=== PATIENT | female | born 1935 | race Caucasian/White ===

== ENCOUNTER 2017-10-22 17:07 | Inpatient (IN) | payer MEDICARE ==
[~2017-10-22 17:07] MED LIST: ISOVUE-370 76%-LOCM 1 ML ONE
[2017-10-22 18:20] LABS: Hemoglobin 8.6 g/dL (12.0-16.0); Mean Corpuscular HGB CONC 29.7 g/dL (32.0-36.0); Mean Corpuscular Hemoglobin 21.1 pg (27.0-31.0); Mean Corpuscular Volume 71.1 fl (81.0-99.0); Mean Platelet Volume 9.1 fL (7.4-10.4); Platelet Count 291 thou/uL (130-400); RBC Distribution Width 18.9 % (11.5-14.5); Red Blood Cell (RBC) Count 4.08 mill/uL (4.20-5.40); White Blood Cell (WBC) Count 10.2 thou/uL (4.8-10.8)
[2017-10-22 18:21] LABS: #Lymphocytes 1.4 thou/uL (1.20-3.40); #Monocytes 0.6 thou/uL (0.11-0.59); #Neutrophils 8.2 thou/uL (1.40-6.50); %Eosinophils 0.2 % (0.0-10.0); %Lymphocytes 13.6 % (21.0-51.0); %Neutrophils 80.1 % (42.0-75.0)
[2017-10-22 18:25] LABS: ALT (SGPT) Less than 7 U/L (8-55); AST (SGOT) 9 U/L (5-34); Albumin 3.2 g/dL (3.4-4.8); Alkaline Phosphatase 110 U/L (40-150); Anion Gap 13 mmol/L (10-20); BUN (Urea Nitrogen) 11 mg/dL (9.8-20.1); Bilirubin, Total 0.4 mg/dL (0.2-1.2); Calc. Creatinine Clearance 0 mL/min (70-130); Calcium 8.1 mg/dL (7.8-10.44); Carbon Dioxide 23 mmol/L (23-31); Chloride 101 mmol/L (98-107); Estimated GFR-MDRD 72; Globulin 3.3 g/dL (2.4-3.5); Glucose 104 mg/dL (83-110); Protein, Total 6.5 g/dL (6.0-8.3); Sodium 134 mmol/L (136-145)
[2017-10-22 18:31] LABS: CK (CPK) 52 U/L (29-168); Lipase 18 U/L (8-78); Potassium 2.8 mmol/L (3.5-5.1)
[2017-10-22 18:34] LABS: Anisocytosis SLIGHT = 6-15 cells (100X) (0-5/hpf); Hypochromia SLIGHT = 6-15 cells (100X) (0-5/hpf); MDiff Complete? YES; Microcytosis SLIGHT = 6-15 cells (100X) (0-5/hpf); PLT Morphology Comment Appears Adequate; Polychromasia SLIGHT = 2-3 cells (100X) (0-2/hpf); Target Cells SLIGHT = 2-5 cells (100X) (0-1/hpf)
[2017-10-22 18:37] LABS: CKMB 0.9 ng/mL (0-6.6); Troponin I 0.031 ng/mL (< 0.028)
--- NOTE | 2017-10-22 19:11 | RAD ---
PORTABLE AP CHEST X-RAY: 10/22/17 HISTORY: Altered mental status. COMPARISON: 03/06/15. FINDINGS: There are partially calcified bilateral breast prostheses noted. Cardiac silhouette is magnified by p rojection. Pulmonary vasculature is within normal limits. The lungs appear clear. There is a right si ded ventriculoperitoneal shunt catheter seen. Vascular calcifications seen in the thoracic aorta. The re is osteopenia. There has been no interval change from the prior exam. IMPRESSION: No acute cardiopulmonary process. POS: BARON
--- NOTE | 2017-10-22 19:19 | CT ---
NONCONTRAST CT HEAD 10/22/17 HISTORY: Altered mental status. COMPARISON: 03/08/15 FINDINGS: Ventriculoperitoneal shunt catheter is again noted in place entering via a right parietal approach wh ich extends anteriorly and superiorly with the tip seen just medial to the anterior horn right latera l ventricle. The ventricular system remains mildly dilated. There are stable postsurgical changes posterior fossa with metallic clip in the posterior fossa. Cran iotomy defect in occipital lobe is present. Stable chronic small vessel ischemic changes and cerebral volume loss with areas of encephalomalacia in the right frontal lobe. There is a stable remote infarction in the left cerebellar hemisphere. The re is no evidence of an acute cortical infarction, hemorrhage, mass effect, or midline shift. IMPRESSION: 1. Stable CT scan of the head with chronic small vessel ischemic changes, cerebral volume loss, as well as postoperative changes. 2. Stable prominence of the ventricular system with ventriculoperitoneal shunt catheter stable i n position. 3. No acute intracranial abnormality is demonstrated. POS: DEJAN
[2017-10-22 20:03] LABS: Bilirubin Negative (Negative); Blood, Urine Negative (Negative); Clarity CLOUDY (Clear); Glucose, Urine (Dipstick) Negative (Negative); Leukocyte Moderate (Negative); Nitrite Positive (Negative); Protein, Urine (Dipstick) 30 mg/dL (Neg-Trace); Specific Gravity, Urine 1.018 (1.002-1.036)
[2017-10-22 20:04] LABS: Bacteria/HPF 4+ HPF (None Seen); RBC/HPF 0-3 HPF (0-3); Yeast-AUWi Flag 14.7 (0-25.0)
[2017-10-22 20:05] LABS: Hyaline Casts/LPF >50 HYALINE CAST LPF (0-3 Hyaline); Pathc Cast-AUWi Flag 6.06 (0-2.49)
[2017-10-22 20:15] LABS: Other Casts/LPF None Seen LPF (0-3 Hyaline)
--- NOTE | 2017-10-22 21:06 | CT ---
CT ABDOMEN AND PELVIS WITH IV CONTRAST: 10/22/17 HISTORY: GI bleed and altered mental status. COMPARISON: Noncontrast CT abdomen and pelvis on 06/28/13. FINDINGS: There is partial visualization of calcified bilateral breast prostheses. Vascular calcifications are again seen in the abdominal aorta and involving the iliac arteries. There is partial visualization of a ventriculoperitoneal shunt catheter entering the right upper quad rant, and the tip is also within the right upper quadrant. Bibasilar atelectasis is present. Calcified granulomata are again seen in the liver and spleen. The pancreas, bilateral adrenal glands, and left kidney as well as urinary bladder demonstrate a norm al CT appearance. There is a subcentimeter too small to characterize hypodense lesion superior pole r ight kidney also seen on the prior study and likely represents a renal cyst. There is a tiny subcenti meter hypodense lesion seen at the lateral aspect body of the spleen. This could potentially be artif actual and is very small in size. No free fluid, fluid collection, or lymphadenopathy seen in the abdomen or pelvis. IMPRESSION: 1. No acute findings in the abdomen or pelvis. 2. Ventriculoperitoneal shunt catheter noted in place terminating in the right upper quadrant. 3. Right renal cyst. 4. Hysterectomy. 5. Colonic diverticulosis predominantly involving the distal descending colon and sigmoid colon. POS: DEJAN
[2017-10-22 22:36] LABS: PTT 29.7 SEC (22.9-36.1); Prothrombin Time 13.8 SEC (12.0-14.7)
[2017-10-22 22:51] LABS: CKMB 1.2 ng/mL (0-6.6); Troponin I 0.025 ng/mL (< 0.028)
[2017-10-22] MEDS ORDERED: Potassium Chloride 20 MEQ TAB ONE (23:39)
[2017-10-23] MEDS ORDERED: Acetaminophen 325 MG TAB PO PRN (00:31)
[2017-10-23] MEDS ORDERED: Ondansetron HCl/PF 4 MG/2 ML Vial IVP PRN (00:31)
[2017-10-23] MEDS ORDERED: Ondansetron ODT 4 MG TAB SL PRN (00:31)
[2017-10-23 00:41] VITALS: BMI 25.6
[2017-10-23 10:31] LABS: Iron 19 ug/dL (50-170); Iron Binding Capacity, Total 355 mcg/dL (265-497)
[2017-10-23] MEDS: Potassium Chloride 20 MEQ TAB PO SCH ×2 (16:28→20:38)
--- NOTE | 2017-10-23 20:12 | HP ---
DATE OF ADMISSION: 10/22/2017 CHIEF COMPLAINT: Syncopal episode. HISTORY OF PRESENT ILLNESS: Ms. Chinchilla is an 82-year-old female with a past medical history of hyperlipidemia, depression, CVA, and a syncopal episode while in the bathroom, who lost consciousness for few seconds. She felt dizzy and passed out. She did not have any chest pain or shortness of breath. No abdominal pain, and vomited once. The patient usually gets confused when she gets tired. EMS was called. EMS found the patient with hypotension of 79/59. In the ER, the patient was evaluated and found to have urinary tract infection as well as hypokalemia. The patient received Rocephin and K-Dur and IV fluid bolus 1 liter. Patient also has evidence of GI bleeding. CT scan of the abdomen revealed colon diverticulosis. The patient is admitted for further evaluation and management. PAST MEDICAL HISTORY: 1. Hyperlipidemia. 2. Depression. 3. History of brain aneurysm. 4. Anxiety disorder. PAST SURGICAL HISTORY: 1. Status post DYSLEXIA TEACHER shunt placement for brain aneurysm after the repair. 2. Status post appendectomy. CURRENT MEDICATIONS: Zoloft 12.5 mg daily, Lipitor 10 mg daily, aspirin 325 mg daily. ALLERGIES: No known drug allergies. FAMILY HISTORY: Nothing of interest. SOCIAL HISTORY: Patient lives with family. No history of smoking. Denies alcohol. REVIEW OF SYSTEMS: Cardiovascular: No chest pain. No shortness of breath. Respiratory: No fever or cough. Gastrointestinal: Has vomiting. No abdominal pain. Genitourinary: No dysuria. Central nervous system: Has dizziness, no headache. PHYSICAL EXAMINATION: GENERAL: The patient is alert, awake, oriented x3. VITAL SIGNS: Temperature 98, pulse 74, respiratory rate 20, blood pressure 170/ 80. HEENT: Head is normocephalic, atraumatic. Pupils equal and reactive to light. Nasopharynx pale and dry. Hard and soft palate, no lesions seen. SKIN: Skin turgor decreased. NECK: Supple. No JVD. LUNGS: Breath sounds diminished. Percussion note dull, No rales, no rhonchi. HEART: S1 and S2, regular. ABDOMEN: Soft, no distention, no tenderness. Normal bowel sounds present. RECTAL EXAM: Done in the ER with heme-positive stool. CENTRAL NERVOUS SYSTEM: The patient is alert, awake, not well oriented. Motor system power 4/5 in all extremities. Deep tendon reflexes 2+ bilaterally. Plantar downgoing. Sensory intact. LABORATORY AND X-RAY FINDINGS: CBC shows WBC 10, hemoglobin 8.6, hematocrit 20 , platelets 291. Metabolic panel shows sodium 134, potassium 2.8, chloride 101 , CO2 of 23, urea nitrogen 11, creatinine 0.7, glucose 104. CK-MB 0.9, troponin I 0.031. Serum iron was 19, TIBC 355. Urinalysis revealed wbc greater than 50, bacteria 4+. More than 50 hyaline casts. Nitrite positive. Chest x-ray, no acute cardiopulmonary process seen. EKG shows normal sinus rhythm, no acute ST-T-wave changes seen. CT scan of the abdomen and pelvis showed no acute findings showing ventriculoperitoneal shunt and colonic diverticulosis involving the distal descending colon and sigmoid colon. ASSESSMENT: 1. Syncopal episode. 2. Urinary tract infection, rule out sepsis. 3. Severe hypokalemia. 4. Acute encephalopathy, metabolic, possible gastrointestinal bleeding. 5. Anemia secondary to bleeding. 6. Hyperkalemia. 7. History of brain aneurysm, status post repair with DYSLEXIA TEACHER shunt. PLAN: 1. Vital signs q.4 hours. 2. Activity: As tolerated. 3. rocephen 2 gms IV pigggybag 4. Hep-lock. 5. allergien NKDA 6. Diet: Regular. 7. Continue home medications. CBC and base met in the morning. 8. KCl replacement. 9. GI consult. FAIZA
[2017-10-23] MEDS: Atorvastatin Calcium 10 MG TAB PO SCH (20:38)
[2017-10-23] MEDS: cefTRIAXone\\ROCEPHIN 2 GM in Sodium Chloride 0.9% 100 ML IVPB SCH (20:38)
--- NOTE | 2017-10-23 22:35 | CON ---
DATE OF CONSULTATION: 10/23/2017 REASON FOR CONSULTATION: Melena, anemia. CONSULTING PHYSICIAN: Dr. Archie Garcia. 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 During her loss of consciousness, she vomited as well as exhibited loss of bladder and bowel control. EMS was subsequently called and she was brought to the ER with si gnificant hypotension on admission. Labs on admission showed presence of a urinary tract infection. She was placed on antibiotics as well as resuscitated with IV fluids with good response to treatment . However, she was also noted to have significantly decreased H&H on admission concerning for possib le GI bleeding. Upon further evaluation and further questioning both the patient and her son, she st ates that she had a large black solid bowel movement approximately 1 week ago and has had this occur intermittently for the last 2-3 weeks prior; however, she denies any other evidence of overt GI bleed ing including hematemesis or hematochezia. REVIEW OF SYSTEMS: A 10-category review of systems was obtained with all responses negative except t hose listed in the HPI. PAST MEDICAL HISTORY: As per HPI. PAST SURGICAL HISTORY: Brain aneurysm repair with ventriculoperitoneal shunt placement, a left carot id endarterectomy, appendectomy. FAMILY HISTORY: Uterine or cervical cancer (mother); colon cancer? (father). SOCIAL HISTORY: Smokes approximately 1/4 pack per day. Denies any alcohol or illicit drug use. OUTPATIENT MEDICATIONS: Reviewed. ALLERGIES: No known drug allergies. PHYSICAL EXAMINATION: VITAL SIGNS: Temperature of 99, pulse 80, blood pressure 171/77, respiratory rate 18, satting 92% on room air. GENERAL: The patient is lying in bed in no acute distress. HEENT: Neck is supple, no JVD noted. CARDIOVASCULAR: Regular rate and rhythm with no discernible murmurs, gallops or rubs. RESPIRATORY: Clear to auscultation bilaterally with no discernible wheezes or rales. ABDOMEN: Normoactive bowel sounds, soft, nontender, nondistended. EXTREMITIES: No cyanosis, clubbing or edema. No movement noted from the left upper or lower extremi ty consistent with prior hemiparesis. LABORATORY DATA: CBC with a white blood cell count of 10.2, hemoglobin 8.6, hematocrit 29, platelets 291. Chemistry with a sodium of 134, potassium 2.8, chloride 101, CO2 is 23, BUN 11, creatinine 0.7 7, glucose 104, AST 9, ALT 7, alkaline phosphatase 110, total bilirubin 0.4, albumin 3.2, MCV 71, RDW 18.9, INR 1.0. IMAGING DATA: CT of the abdomen and pelvis obtained on 10/22/2017 showed placement of the ventriculo peritoneal shunt in the right upper quadrant, but no other GI abnormalities. ASSESSMENT AND PLAN: The patient is an 82-year-old female with past medical history of brain aneurys m status post ventriculoperitoneal shunt, cerebrovascular accident, depression, and tobacco abuse pre senting with anemia and iron indices concerning for iron deficiency anemia. 1. Iron deficiency anemia. The patient was initially presenting to the hospital with loss of consciousness at home and what appe ars to be seizure-like activity with loss of both bladder and bowel control. However, upon admission to the ER, she was noted to have a significantly decreased H&H with her CBC indices concerning for i aguila deficiency anemia. Upon further questioning of the patient, she has been having intermittent ilia id black stools over the last 2-3 weeks, also concerning for possible upper gastrointestinal bleeding source and while she does have a possible history of colon cancer in her father, she has never had a colonoscopy before, also raising concern as this could be a possible source of iron deficiency anemi a, currently differential is broad with differential including AVM/Dieulafoy lesions, gastritis, esop hagitis, colitis, peptic ulcer disease, stercoral ulcerations, hemorrhoids, and/or GI malignancies. RECOMMENDATIONS: 1. We would continue to trend H&H and transfuse as necessary to maintain an H&H of 7/. 2. Avoid any NSAIDs during this hospitalization. 3. Please make patient n.p.o. at midnight for both EGD and colonoscopy tomorrow morning for evaluati on of possible GI bleeding source. We would give the patient GoLYTELY for colon preparation for the colonoscopy tomorrow. 4. Continue to monitor clinically for any signs of active gastrointestinal bleeding. We will continue to follow. Please call with any questions.
--- NOTE | 2017-10-23 22:49 | ULT ---
BILATERAL CAROTID DUPLEX ULTRASOUND WITH SPECTRAL ANALYSIS AND COLOR FLOW EVALUATION: Date: 10/23/17 HISTORY: Sepsis, altered mental status. FINDINGS: There is a heterogeneous nodule measuring approximately 2.0 cm seen in the right lobe of the thyroid gland. This heterogeneous nodule was seen on prior CTA of the neck on 03/07/15. Minimal atherosclerotic plaque is seen within the right common carotid artery with prominent atherosc lerotic plaque seen in the left internal carotid artery. There is moderate (50-69%) stenosis in the left internal carotid artery based on a peak systolic [place] of 136.7 cm/second. The left ICA/CCA ratio is 1.47. There is less than 50% maximal stenosis in the right internal carotid artery with peak systolic veloc ity of 94.7 cm/second, and an ICA/CCA ratio of 1.05. Antegrade flow is demonstrated in the vertebral arteries bilaterally. IMPRESSION: 1. Dominant nodule right lobe of thyroid gland. However, this nodule was seen on prior CT scan exam on 03/07/15. 2. Moderate (50-69%) stenosis involving the left internal carotid artery. 3. No hemodynamically significant stenosis in the right internal carotid artery. The right internal carotid artery is tortuous. POS: DEJAN
[2017-10-24] MEDS: Potassium Chloride 20 MEQ TAB PO SCH (00:08)
[2017-10-24 05:19] LABS: #Eosinphils 0.1 thou/uL (0.0-0.7); #Lymphocytes 2.3 thou/uL (1.20-3.40); #Monocytes 0.5 thou/uL (0.11-0.59); #Neutrophils 4.1 thou/uL (1.40-6.50); %Basophils 0.2 % (0.0-1.0); %Eosinophils 1.5 % (0.0-10.0); %Lymphocytes 32.5 % (21.0-51.0); %Monocytes 7.6 % (0.0-10.0); %Neutrophils 58.2 % (42.0-75.0); Mean Corpuscular HGB CONC 30.1 g/dL (32.0-36.0); Mean Corpuscular Hemoglobin 21.3 pg (27.0-31.0); Mean Corpuscular Volume 70.8 fl (81.0-99.0); Mean Platelet Volume 9.7 fL (7.4-10.4); Platelet Count 269 thou/uL (130-400); RBC Distribution Width 19.1 % (11.5-14.5); Red Blood Cell (RBC) Count 3.75 mill/uL (4.20-5.40)
[2017-10-24 05:29] LABS: Anion Gap 8 mmol/L (10-20); BUN (Urea Nitrogen) 7 mg/dL (9.8-20.1); Calc. Creatinine Clearance 73 mL/min (70-130); Calcium 8.3 mg/dL (7.8-10.44); Carbon Dioxide 26 mmol/L (23-31); Chloride 103 mmol/L (98-107); Estimated GFR-MDRD 89; Glucose 84 mg/dL (83-110); Potassium 3.7 mmol/L (3.5-5.1); Sodium 133 mmol/L (136-145)
[2017-10-24] MEDS ORDERED: GoLYTELY 4,000 ml Bottle PO SCH (08:15)
[2017-10-24] MEDS ORDERED: Prevnar 13-Val Conj/PF 0.5 ML SYRINGE IM ONE (09:00)
[2017-10-24] MEDS ORDERED: FLU VACC TS2017-18 (>65YR) 0.5 ML SYRINGE IM ONE (09:00)
[2017-10-24] MEDS: Aspirin 325 mg Enteric Coated Tablet PO SCH (10:02)
--- NOTE | 2017-10-24 15:51 | PRG ---
DATE OF SERVICE: 10/24/2017 REASON FOR CONSULTATION: Melena, anemia. SUBJECTIVE: The patient is doing well this morning with no acute events or problems overnight. Curr ently, she denies any nausea, vomiting, fevers, chills, shortness of breath, abdominal pain, or GI bl eeding. She was due to have both EGD and colonoscopy today, but unfortunately the GoLYTELY prep was not ordered last night with inability to perform the procedures without this mechanism in place. OBJECTIVE: VITAL SIGNS: Temperature 97.9, pulse 76, blood pressure 132/67, respiratory rate 18, satting 92% on room air. GENERAL: The patient is lying in bed in no acute distress. CARDIOVASCULAR: Regular rate and rhythm with no discernible murmurs, gallops or rubs. RESPIRATORY: Clear to auscultation bilaterally. ABDOMEN: Normoactive bowel sounds, soft, nontender, nondistended. EXTREMITIES: No cyanosis, clubbing or edema. No movement noted from the left upper or left lower ex tremity consistent with prior hemiparesis. LABORATORY DATA: CBC with a white blood cell count of 7, hemoglobin 8, hematocrit 26.6, platelets 26 9. Chemistry with a sodium 133, potassium 3.7, chloride 103, CO2 is 26, BUN 7, creatinine 0.64, gluc ose 84. IMAGING DATA: No current GI imaging available for review. ASSESSMENT: The patient is an 82-year-old female with past medical history of brain aneurysm status post ventriculoperitoneal shunt, cerebrovascular accident, depression, and tobacco abuse presenting w ith anemia and iron indices concerning for iron deficiency anemia. 1. Iron deficiency anemia. The patient initially presented to the hospital with loss of consciousne ss at home and what appeared to be seizure-like activity with loss of both bladder and bowel control. However, routine labs noted on admission showed a significantly decreased H&H from her baseline wit h iron indices consistent with iron deficiency anemia. She does have a recent history of intermitten t solid black stools over the last 2-3 weeks concerning for melena, but not necessarily consistent wi th this diagnosis. At this point in time, the origin of her anemia is unknown and so further evaluat ion with both upper and lower endoscopy is indicated. RECOMMENDATIONS: 1. Continue to trend H&H and transfuse as necessary to maintain an H&H of 7/. 2. Avoid any NSAIDs during this hospitalization. 3. The patient will be placed on clear liquid diet today with n.p.o. status at midnight in preparati on for EGD and colonoscopy tomorrow 10/25/2017. The GoLYTELY prep has already been ordered in antici pation for these procedures. 4. Continue to monitor for signs of active gastrointestinal bleeding. We will continue to follow. Please call with any questions.
[2017-10-24] MEDS: Atorvastatin Calcium 10 MG TAB PO SCH (20:33)
[2017-10-24] MEDS: cefTRIAXone\\ROCEPHIN 2 GM in Sodium Chloride 0.9% 100 ML IVPB SCH (20:33)
[2017-10-25] MEDS: Aspirin 325 mg Enteric Coated Tablet PO SCH (08:21)
--- NOTE | 2017-10-25 10:46 | RAD ---
ONE VIEW ABDOMEN: History: NG tube placement. Comparison: None. FINDINGS: There is a EDITORIAL PROJECT MANAGER shunt catheter projecting over the right hemithorax and right upper quadrant. Nasogastr ic tube extends beyond the diaphragm, distal tip in the left upper quadrant. IMPRESSION: Nasogastric tube as above. POS: DEJAN
[2017-10-25] MEDS ORDERED: PROPOFOL 200 MG/20 ML VIAL ONE (14:55)
[2017-10-25] MEDS ORDERED: Lidocaine 1% PF 5 ML VIAL ONE (14:55)
[2017-10-25] MEDS ORDERED: PHENYLEPHRINE-NS 100 MCG/ML 10 ML SYRINGE ONE (14:55)
[2017-10-25] MEDS ORDERED: Promethazine HCl 25 MG/ML VIAL SLOW IVP PRN (19:51)
[2017-10-25] MEDS ORDERED: Ondansetron HCl/PF 4 MG/2 ML Vial IVP PRN (19:51)
[2017-10-25] MEDS ORDERED: Promethazine HCl 25 MG/ML VIAL IM PRN (19:51)
[2017-10-25] MEDS: cefTRIAXone\\ROCEPHIN 2 GM in Sodium Chloride 0.9% 100 ML IVPB SCH (21:28)
[2017-10-25] MEDS: Atorvastatin Calcium 10 MG TAB PO SCH (21:28)
--- NOTE | 2017-10-25 23:42 | OP ---
DATE OF PROCEDURE: 10/25/2017 PROCEDURE: Esophagogastroduodenoscopy and colonoscopy with snare polypectomy. PREOPERATIVE DIAGNOSIS: Iron deficiency anemia. OPERATIVE NOTE: Informed consent was obtained. The patient was sedated with total intravenous anest hesia. The bite block was placed and the endoscope was advanced easily to the second portion of the d uodenum and retroflexion was performed in the stomach. She had grade B erosive esophagitis more in t he mid esophagus. The GE junction revealed a 2 cm hiatal hernia. The stomach was unremarkable, incl uding retroflexed views. The pylorus and first and second portions of the duodenum were unremarkable except for erythematous duodenitis in the first portion of the duodenum. The patient was turned steven und. Rectal exam was performed and was normal. The colonoscope was advanced to the cecum where the ileocecal valve and appendiceal orifice were clearly identified. The preparation quality was good. A 1 cm sessile polyp was removed from the cecum by snare cautery polypectomy. This had a rather deep polypectomy ulcer and a Hemoclip was placed over the site. A 6 mm polyp was removed from the ascend ing colon. A 2.2 cm sessile polyp was removed from the ascending colon. This was injected submucosa lly with saline to lift it off the wall. It was then removed in 4 pieces with snare cautery polypect earle. The edges of the polyp were treated with argon plasma coagulation. A 1.2 cm polyp was removed from the hepatic flexure in 2 pieces by snare cautery polypectomy. A 6 mm polyp was removed from the hepatic flexure by snare cautery polypectomy as well. Two polyps measuring 6 mm were removed from t he transverse colon by snare cautery polypectomy. A 1 cm possible AVM was noted in the transverse co ирина; however, this did not have bright red appearance and did not ooze or bleed with manipulation. T his was left alone. A 1.8 cm polyp was removed from the sigmoid colon at 30 cm by snare cautery poly pectomy. This was removed in two pieces. A 1.2 cm polyp was removed from the sigmoid colon at 20 cm by snare cautery polypectomy. Three 5 mm polyps removed from the rectum. Retroflexed views in the rectum were unremarkable. There was moderate diverticulosis throughout the colon. IMPRESSION: 1. Grade B erosive esophagitis. 2. A 2 cm hiatal hernia. 3. A 1 cm cecum polyp. 4. Large 2.2 cm sessile polyp in the ascending colon. This was removed piecemeal and treated with A PC. A tattoo was placed next to this polyp. A 6 mm polyp was removed from the ascending colon as we ll. 5. A 1.2 cm hepatic flexure polyp and a 6 mm polyp were removed from the hepatic flexure. 6. Two 6 mm transverse polyps were removed. 7. Possible arteriovenous malformation was noted in the transverse colon; however, this did not appe ar to be a significant bleeding source. 8. A 1.8 cm sigmoid polyp removed at 30 cm. 9. A 1.2 cm pedunculated polyp was removed from the sigmoid colon at 20 cm. 10. Three 5 mm polyps were removed from the rectum. 11. Moderate diverticulosis throughout the colon. RECOMMENDATIONS: 1. Await histopathology. 2. Proton pump inhibitor daily. 3. Consider followup colonoscopy in 6 months. This will have to be taken in consideration given the patient's age and dementia.
[2017-10-26] MEDS: Aspirin 325 mg Enteric Coated Tablet PO SCH (09:10)
--- NOTE | 2017-10-26 17:47 | PRG ---
DATE OF SERVICE: 10/26/2017 REASON FOR CONSULTATION: Melena and anemia. SUBJECTIVE: The patient was doing well today with no acute events or problems overnight. Currently, she is alert and oriented x2, but this is unchanged in terms of her baseline. She did have both EGD and colonoscopy performed yesterday with the findings listed below. Currently, she denies any nause a, vomiting, fevers, chills, shortness of breath, abdominal pain or GI bleeding. OBJECTIVE: VITAL SIGNS: Temperature 97.8, pulse 72, blood pressure 139/64, respiratory rate 16 and satting 94% on room air. GENERAL: The patient lying in bed in no acute distress, alert and oriented x2. CARDIOVASCULAR: Regular rate and rhythm. No discernible murmurs, gallops or rubs. RESPIRATORY: Clear to auscultation bilaterally. ABDOMEN: Normoactive bowel sounds, soft, nontender, nondistended. EXTREMITIES: No cyanosis, clubbing or edema. LABORATORY DATA: No current labs are available for review. IMAGING DATA: EGD performed on 10/25/2017 was unremarkable except for a 2 cm hiatal hernia and LA gr aleena B erosive esophagitis more in the mid esophagus; however, the colonoscopy showed multiple colonic polyps, the largest of which measuring 2.2 cm in the ascending colon that was removed in a piecemeal fashion. In addition to that, a 1 cm cecal polyp, 1.2 cm hepatic flexure polyp, 6 mm hepatic flexur e polyp, two 6 mm transverse polyps, 1.8 sigmoid colon polyp and a 1.2 pedunculated polyp was removed from the sigmoid colon. ASSESSMENT: The patient is an 82-year-old female with past medical history of brain aneurysm status post ventriculoperitoneal shunt, CVA, depression, and tobacco abuse presenting with anemia concerning for iron deficiency anemia. Iron deficiency anemia. The patient initially presented to the hospital with loss of consciousness a t home and what appeared to be seizure-like activity with loss of both bladder and bowel control. Ho wever, labs noted on admission showed a significantly decreased hemoglobin and hematocrit from baseli ne with iron indices are consistent with iron deficiency anemia. Esophagogastroduodenoscopy and colo noscopy performed on 10/25/2017 did not show any overt pathology within the upper GI tract that would contribute to her anemia. However, she had multiple large colonic polyps that were removed, which c ould potentially generate an iron deficiency anemia. RECOMMENDATIONS: 1. Would continue to trend hemoglobin and hematocrit and transfuse as necessary to maintain hemoglob in and hematocrit of 7/21. 2. Continue to monitor for clinical signs of overt gastrointestinal bleeding. 3. We will follow up on histopathology results with possible colonoscopy in 6 months given the piece meal removal of the large ascending colon polyp; however, the patient's age and advancing dementia sh ould be considered in regards to colon polyp surveillance. At this time, we will sign off. Please c all with any additional questions.
[2017-10-26] MEDS: Atorvastatin Calcium 10 MG TAB PO SCH (21:30)
[2017-10-26] MEDS: cefTRIAXone\\ROCEPHIN 2 GM in Sodium Chloride 0.9% 100 ML IVPB SCH (21:31)
[2017-10-27 04:47] LABS: #Eosinphils 0.2 thou/uL (0.0-0.7); #Lymphocytes 2.1 thou/uL (1.20-3.40); #Monocytes 0.5 thou/uL (0.11-0.59); #Neutrophils 4.9 thou/uL (1.40-6.50); %Basophils 0.5 % (0.0-1.0); %Eosinophils 2.2 % (0.0-10.0); %Lymphocytes 27.6 % (21.0-51.0); %Monocytes 6.1 % (0.0-10.0); %Neutrophils 63.6 % (42.0-75.0); Hemoglobin 7.5 g/dL (12.0-16.0); Mean Corpuscular HGB CONC 31.1 g/dL (32.0-36.0); Mean Corpuscular Volume 70.9 fl (81.0-99.0); Mean Platelet Volume 10.4 fL (7.4-10.4); Platelet Count 259 thou/uL (130-400); Red Blood Cell (RBC) Count 3.43 mill/uL (4.20-5.40); White Blood Cell (WBC) Count 7.7 thou/uL (4.8-10.8)
[2017-10-27 05:06] LABS: Anion Gap 10 mmol/L (10-20); BUN (Urea Nitrogen) 7 mg/dL (9.8-20.1); Calc. Creatinine Clearance 72 mL/min (70-130); Calcium 8.1 mg/dL (7.8-10.44); Carbon Dioxide 23 mmol/L (23-31); Chloride 102 mmol/L (98-107); Estimated GFR-MDRD 89; Glucose 86 mg/dL (83-110); Potassium 3.4 mmol/L (3.5-5.1); Sodium 132 mmol/L (136-145)
[2017-10-27] MEDS: Aspirin 325 mg Enteric Coated Tablet PO SCH (09:14)
--- NOTE | 2017-10-27 13:46 | CON ---
DATE OF CONSULTATION: 10/27/2017 HISTORY OF PRESENT ILLNESS: Ms. Chinchilla is an 82-year-old woman who is status post right carotid enda rterectomy in 2014. She has failed to followup. At that time, her left carotid artery had a moderat e degree of stenosis. She was admitted to the hospital with syncope and GI bleed. She has had a car otid ultrasound performed while here which shows a peak systolic velocity in the left internal caroti d artery of 136 with a ratio of 1.47. On the right there is no evidence of recurrent stenosis. I gonsales ve been asked to see her for further recommendations. PAST MEDICAL HISTORY: 1. Bilateral carotid stenosis status post right carotid endarterectomy in 2014. 2. Hyperlipidemia. 3. Depression. 4. History of intracranial aneurysm. 5. Anxiety. PAST SURGICAL HISTORY: 1. Right carotid endarterectomy. 2. Appendectomy. 3. Repair of intracranial aneurysm with a ORTHOPHOTO TECH/DRAFTSMAN shunt. ALLERGIES: None. SOCIAL HISTORY: She does not use tobacco or alcohol. She lives with her family. MEDICATIONS: Medications are noted. REVIEW OF SYSTEMS: Ten point review of systems performed and is negative except as above. PHYSICAL EXAMINATION: GENERAL: This is a pleasant diminutive elderly woman in no distress. VITAL SIGNS: Height 5 feet 3 inches, weight 143 pounds, BSA is 1.70. NECK: Supple. She has soft bilateral bruits, right neck has healed nicely. LUNGS: Clear bilaterally. HEART: Rhythm is regular. ABDOMEN: Soft and nontender. EXTREMITIES: No edema. NEUROLOGIC: She has grossly intact motor exam. ASSESSMENT AND PLAN: Asymptomatic left carotid stenosis of 50-69% on ultrasound. I would recommend that she follow up was with us in a year - she has failed to follow up in the past and I doubt she wi ll actually follow up this time.
[2017-10-27] MEDS: Potassium Chloride 20 MEQ TAB PO SCH (19:30)
[2017-10-27] MEDS: cefTRIAXone\\ROCEPHIN 2 GM in Sodium Chloride 0.9% 100 ML IVPB SCH (20:52)
[2017-10-27] MEDS: Atorvastatin Calcium 10 MG TAB PO SCH (20:52)
[2017-10-28] MEDS: Potassium Chloride 20 MEQ TAB PO SCH (00:10)
[2017-10-28] MEDS: Aspirin 325 mg Enteric Coated Tablet PO SCH (08:36)
[2017-10-28] MEDS: Atorvastatin Calcium 10 MG TAB PO SCH (20:56)
[2017-10-28] MEDS: cefTRIAXone\\ROCEPHIN 2 GM in Sodium Chloride 0.9% 100 ML IVPB SCH (20:56)
[2017-10-29 05:30] LABS: #Eosinphils 0.2 thou/uL (0.0-0.7); #Lymphocytes 1.9 thou/uL (1.20-3.40); #Monocytes 0.6 thou/uL (0.11-0.59); #Neutrophils 6.2 thou/uL (1.40-6.50); %Basophils 0.4 % (0.0-1.0); %Eosinophils 2.5 % (0.0-10.0); %Lymphocytes 21.7 % (21.0-51.0); %Monocytes 6.3 % (0.0-10.0); %Neutrophils 69.1 % (42.0-75.0); Hemoglobin 7.6 g/dL (12.0-16.0); Mean Corpuscular HGB CONC 30.1 g/dL (32.0-36.0); Mean Corpuscular Hemoglobin 21.1 pg (27.0-31.0); Mean Corpuscular Volume 70.4 fl (81.0-99.0); Mean Platelet Volume 9.9 fL (7.4-10.4); Platelet Count 252 thou/uL (130-400); RBC Distribution Width 19.3 % (11.5-14.5); Red Blood Cell (RBC) Count 3.59 mill/uL (4.20-5.40); White Blood Cell (WBC) Count 8.9 thou/uL (4.8-10.8)
[2017-10-29 05:55] LABS: Anion Gap 11 mmol/L (10-20); BUN (Urea Nitrogen) 8 mg/dL (9.8-20.1); Calc. Creatinine Clearance 74 mL/min (70-130); Calcium 8.2 mg/dL (7.8-10.44); Carbon Dioxide 20 mmol/L (23-31); Chloride 103 mmol/L (98-107); Estimated GFR-MDRD Greater than 90; Glucose 75 mg/dL (83-110); Sodium 130 mmol/L (136-145)
[2017-10-29] MEDS: Aspirin 325 mg Enteric Coated Tablet PO SCH (08:36)
--- NOTE | 2017-10-29 11:36 | PRG ---
DATE OF SERVICE: 10/29/2017 SUBJECTIVE: This is an 82-year-old female being seen for GI bleed. The patient denies any nausea, v omiting or chest pain. PHYSICAL EXAMINATION: GENERAL: Patient is awake, alert. VITAL SIGNS: Afebrile, pulse 76, breathing 16, blood pressure 131/60. HEAD/NECK: Normocephalic. Atraumatic. EYES: EOMI. No deformity. EARS: Clear. No ulcers. NOSE: Intact. No lesions. MOUTH: Clear. No discharge. THROAT: Clear. No exudate. LUNGS: Clear. No crackles. CARDIAC: S1, S2. No rub. ABDOMEN: Benign. BS+. GENITALIA/RECTUM: Emery absent. BACK/EXTREMITIES: Edema 0+ Ulcer- NEUROLOGICAL: Alert and motor intact. SKIN: Rash- Bruise- LYMPHATICS: Edema- Ulcer- LABORATORY DATA: Show hemoglobin 7.6, creatinine 0.6, sodium 130. ASSESSMENT AND RECOMMENDATIONS: 1. Hypertension, stable. 2. Anemia, stable. Would recommend transfusion if hemoglobin drops tomorrow. 3. Hyponatremia. Recommend fluid restriction. 5. Hypokalemia, resolved. I am covering for Dr. Garcia.
[2017-10-29] MEDS: cefTRIAXone\\ROCEPHIN 2 GM in Sodium Chloride 0.9% 100 ML IVPB SCH (20:31)
[2017-10-29] MEDS: Atorvastatin Calcium 10 MG TAB PO SCH (20:32)
[2017-10-30] MEDS: Aspirin 325 mg Enteric Coated Tablet PO SCH (09:31)
[2017-10-30] MEDS: Ciprofloxacin 500 MG TAB PO SCH (20:02)
[2017-10-30] MEDS: Atorvastatin Calcium 10 MG TAB PO SCH (20:02)
[2017-10-31 05:05] LABS: #Eosinphils 0.2 thou/uL (0.0-0.7); #Lymphocytes 2.4 thou/uL (1.20-3.40); #Monocytes 0.6 thou/uL (0.11-0.59); #Neutrophils 5.6 thou/uL (1.40-6.50); %Basophils 0.3 % (0.0-1.0); %Eosinophils 2.7 % (0.0-10.0); %Lymphocytes 26.5 % (21.0-51.0); %Monocytes 7.2 % (0.0-10.0); %Neutrophils 63.3 % (42.0-75.0); Hemoglobin 7.2 g/dL (12.0-16.0); Mean Corpuscular HGB CONC 30.3 g/dL (32.0-36.0); Mean Corpuscular Hemoglobin 21.2 pg (27.0-31.0); Mean Corpuscular Volume 70.1 fl (81.0-99.0); Mean Platelet Volume 9.1 fL (7.4-10.4); Platelet Count 291 thou/uL (130-400); RBC Distribution Width 19.1 % (11.5-14.5); Red Blood Cell (RBC) Count 3.38 mill/uL (4.20-5.40); White Blood Cell (WBC) Count 8.9 thou/uL (4.8-10.8)
[2017-10-31 05:34] LABS: Anion Gap 9 mmol/L (10-20); Calc. Creatinine Clearance 70 mL/min (70-130); Calcium 8.7 mg/dL (7.8-10.44); Carbon Dioxide 25 mmol/L (23-31); Chloride 102 mmol/L (98-107); Estimated GFR-MDRD 86; Glucose 81 mg/dL (83-110); Potassium 4.2 mmol/L (3.5-5.1); Sodium 132 mmol/L (136-145)
[2017-10-31] MEDS: Ciprofloxacin 500 MG TAB PO SCH ×2 (05:47→20:22)
[2017-10-31 06:28] LABS: BUN (Urea Nitrogen) 10 mg/dL (9.8-20.1)
[2017-10-31] MEDS: Aspirin 325 mg Enteric Coated Tablet PO SCH (07:47)
[2017-10-31] MEDS ORDERED: Nystatin Powder 15 GM BOT TOP PRN (10:54)
[2017-10-31] MEDS: Ferrous Sulfate 325 MG TAB PO SCH (17:36)
[2017-10-31] MEDS: Atorvastatin Calcium 10 MG TAB PO SCH (20:22)
[2017-11-01] MEDS: Ciprofloxacin 500 MG TAB PO SCH (05:44)
[2017-11-01 08:07] VITALS: BP 114/68; TEMP 97.7
[2017-11-01] MEDS: Aspirin 325 mg Enteric Coated Tablet PO SCH (09:27)
[2017-11-01] MEDS: Ferrous Sulfate 325 MG TAB PO SCH (09:27)
--- NOTE | 2017-11-02 15:28 | DIS ---
DATE OF ADMISSION: 10/22/2017 DATE OF DISCHARGE: 11/01/2017 ADMITTING DIAGNOSES: 1. Syncopal episode. 2. Urinary tract infection, rule out sepsis. 3. Severe hypokalemia. 4. Acute encephalopathy, metabolic. 5. Iron deficiency anemia. 6. Episode of gastrointestinal bleeding. 7. History of brain aneurysm. FINAL DIAGNOSES: 1. Syncopal episode, rule out acute myocardial infarction. 2. Severe hypokalemia, corrected. 3. Iron deficiency anemia. 4. Colon polyps. 5. Erosive esophagitis. 6. Dementia. 7. Unstable gait. BRIEF SUMMARY OF HOSPITAL COURSE: Ms. Chinchilla is an 82-year-old female admitted because of syncopal episode. The patient also found to be severely hypokalemic. Potassium was 2.8. Her potassium improved in the next few days, came up to 4.2. The patient was also found to be anemic. She had episode of GI bleeding as well. Her hemoglobin stayed around initially 8.6 and dropped to 7.2. A GI consult was done. The patient was seen by Dr. Stefan Boswell, who suggested impression of iron deficiency anemia, suggested EGD and colonoscopy. The patient underwent both procedures and found to have grade 4 esophagitis as well as colon polyps, which were removed. The patient tolerated the procedure. After the procedure, the patient did very well. She started to eat very well, but she is not able to ambulate. She was started on physical therapy and has workup for syncope. She also had carotid Doppler. The patient is being discharged home on home health because of her unstable gait. She will have home health PT. At the time of discharge, she was stable. Carotid ultrasound showed about 50% to 69% stenosis in the left internal carotid artery. The patient was seen by Vascular Surgery and suggested of monitoring this and follow up in a year for repeat carotid Doppler, so patient is being discharged home with home health physical therapy. At the time of discharge, she was stable. Her vital signs were stable. Lungs were clear. Heart sounds regular. Abdomen was soft, nontender, bowel sounds present. DISCHARGE MEDICATIONS: Include atorvastatin 10 mg daily, aspirin 325 mg daily, Zoloft 12.5 mg daily, ferrous sulfate 325 b.i.d., Protonix 40 mg daily, Cipro 500 b.i.d. for 1 week, and Nystatin Powder for 2 weeks. FOLLOWUP: The patient will be followed up in 2 weeks. MTDD
--- NOTE | 2017-11-06 00:25 | EKG ---
Test Reason : SYNCOPE Blood Pressure : / mmHG Vent. Rate : 083 BPM Atrial Rate : 083 BPM P-R Int : 132 ms QRS Dur : 068 ms QT Int : 386 ms P-R-T Axes : 048 043 104 degrees QTc Int : 453 ms Normal sinus rhythm Low voltage QRS Cannot rule out Inferior infarct , age undetermined Abnormal ECG Confirmed by HARLEEN LEHMAN ([id number]), research editor HIPOLITO PARNELL ([id number] on 11/06/2017 12:24:43 AM Referred By: Confirmed By:HARLEEN LEHMAN
== END 2017-11-01 14:04 | disposition home health service (06) | DRG 377 ==
LOC: ERS 17:07 → 2NO 22:00 → T4-A 10-30 10:52
PROVIDERS: ADMIT Internal Medicine; ATTEND Internal Medicine
PROC: 0DJ08ZZ Inspection of Upper Intestinal Tract, Via Natural or Artificial Opening Endoscopic (ICD-10-PCS; principal; 2017-10-25)
PROC: 0DBK8ZZ Excision of Ascending Colon, Via Natural or Artificial Opening Endoscopic (ICD-10-PCS; 2017-10-25)
PROC: 0DBL8ZZ Excision of Transverse Colon, Via Natural or Artificial Opening Endoscopic (ICD-10-PCS; 2017-10-25)
PROC: 0DBN8ZZ Excision of Sigmoid Colon, Via Natural or Artificial Opening Endoscopic (ICD-10-PCS; 2017-10-25)
PROC: 0DBP8ZZ Excision of Rectum, Via Natural or Artificial Opening Endoscopic (ICD-10-PCS; 2017-10-25)
PROC: 0DBH8ZZ Excision of Cecum, Via Natural or Artificial Opening Endoscopic (ICD-10-PCS; 2017-10-25)
DX: K63.5 Polyp of colon; D50.0 Iron deficiency anemia secondary to blood loss (chronic); R26.89 Other abnormalities of gait and mobility; K57.30 Diverticulosis of large intestine without perforation or abscess without bleeding; I69.354 Hemiplegia and hemiparesis following cerebral infarction affecting left non-dominant side; Z86.79 Personal history of other diseases of the circulatory system; R55 Syncope and collapse; F41.9 Anxiety disorder, unspecified; Z98.2 Presence of cerebrospinal fluid drainage device; K44.9 Diaphragmatic hernia without obstruction or gangrene; E87.6 Hypokalemia; K20.9 Esophagitis, unspecified; F17.210 Nicotine dependence, cigarettes, uncomplicated; I65.22 Occlusion and stenosis of left carotid artery; F03.90 Unspecified dementia, unspecified severity, without behavioral disturbance, psychotic disturbance, mood disturbance, and anxiety; K92.1 Melena; F32.9 Major depressive disorder, single episode, unspecified; G93.41 Metabolic encephalopathy; N39.0 Urinary tract infection, site not specified; E86.0 Dehydration; I95.9 Hypotension, unspecified; E87.1 Hypo-osmolality and hyponatremia; E78.5 Hyperlipidemia, unspecified
CPT/HCPCS: 36415; 70450; 71045; 74018; 74177; 80048; 80053; 81003; 81015; 82274; 82553; 82728; 83540; 83550; 83605; 83690; 84484; 85025; 85610; 85730; 86850; 86900; 86901; 87077; 87086; 87186; 88305; 90471; 90682; 93005; 93306; 93880; 96361; 96374; 99406; A4216; A4353; G0008; G8978-GP-CN; G8979-GP-CL; J0696; J2001; J2704; J7050; Q2036